=== PATIENT | male | born 1990 | race Caucasian/White ===

== ENCOUNTER 2024-09-09 12:43 | Emergency (ER) | payer OTHER, SELFPAY ==
--- NOTE | ~2024-09-09 | XR_ITS ---
EXAMINATION: XR chest 2V DATE: 09/09/2024 14:07 INDICATION: Cough and fever TECHNIQUE: PA and lateral views of the chest were obtained. COMPARISON: None FINDINGS: Patchy airspace opacities in the left lower lobe. Additional more subtle airspace opacities at the pe riphery of the right upper lung zone. No pulmonary edema, pleural effusion or pneumothorax. The cardi omediastinal silhouette is normal. Mild thoracic spondylosis. IMPRESSION: 1. Airspace opacity in the left lower lobe at the periphery of the right upper lung suspicious for pn eumonia. Recommend radiographic follow-up to resolution. Reviewed, dictated and finalized at location B. EMIC PHYSICIAN IMPRESSION: 1. Airspace opacity in the left lower lobe at the periphery of the right upper lung suspicious for pneumonia. Recommend radiographic follow-up to resolution.
[2024-09-09 13:46] VITALS: BP 136/75; PULSE 94; RESP 16; TEMP 38.4; O2SAT 98
--- NOTE | 2024-09-09 13:56 | ED.URI ---
HPI - URI/Sore Throat General Chief Complaint: Upper Respiratory Infection Stated Complaint: Fever/Rib Pain Time Seen by Provider: 09/09/24 13:56 Source: patient, RN notes reviewed and old records reviewed Mode of arrival: ambulatory Limitations: no limitations History of Present Illness HPI Narrative: 33 year old male presents to [facility] care with complaints of fever, cough, and sinus drainage, and now some rib pain since after Thanksgiving with symptoms increasing in intensity for the past few day. Patient reportsathat he has been taking Tylenol and Ibuprofen with the last dose at 1015 today. Patient reports some shortness of breath with activity, respirations nonlabored and SAO2@ 98% on room air with no tachypnea noted. denies any MD elicited complaint: fever, cough, rhinorrhea, nasal congestion and other (rib pain) Onset (ago): week(s) (3 to 4 weeks) Severity: moderate Description of mucous: clear and yellow Able to tolerate fluids by mouth: Yes Associated symptoms: fever, nasal congestion, cough and shortness of breath Treatments prior to arrival: acetaminophen and ibuprofen Related Data Allergies Allergy/AdvReac Type Severity Reaction Status Date / Time No Known Allergies Allergy Verified 09/09/24 16:08 Review of Systems Review of Systems: CONSTITUTIONAL: Reports malaise, chills, sweats, or fever. EYES: Denies visual changes, redness, or discharge. ENT: Reports rhinorrhea, congestion, sinus pain,no otalgia and no sore throat. CARDIOVASCULAR: Denies chest pain, palpitations, or edema. reports some rib pain bilaterally from coughing so much RESPIRATORY: Reports cough.? some dyspnea with exertion. GASTROINTESTINAL: Denies abdominal pain, nausea, vomiting, diarrhea SKIN: Denies rash or itching. MUSCULOSKELETAL: Denies myalgia. NEUROLOGIC: Denies headache. All systems reviewed & are unremarkable except as noted in HPI and below PMFSH Social History Social History (Updated 09/12/24 @ 20:53 by Cheri Powell NP) Smoking status: Never smoker Alcohol intake: unknown Substance use: unknown Living arrangements: with family Gender identity (if verbalized by the patient): Male Comments At time of signature, agree with nursing past medical, surgical, social and family history. There is no relevant family history pertinent to the presenting complaint Exam Narrative: GENERAL: Well-appearing, well-nourished, and in no acute distress. HEAD: Normocephalic EYES: PERRLA, conjunctivae clear ENT: Nares clear, turbinates edematous and erythematous, clear to yellow discharge. Mucous membranes moist. TM pearly joyce with dull light reflex bilaterally; no tragal tenderness. Oropharynx erythematous without lesions. Tonsils not enlarged and without exudate, no drooling, no hoarseness, no trismus, uvula midline. post nasal drainage NECK: Supple. No lymphadenopathy CHEST: Scattered rhonchi left lower lobe on auscultation, breath sounds equal. No wheezing,positive rhonchi, pili, or stridor. No respiratory distress, speaks in full sentences.SAO2 98% on room air some cough at times productive yellow tinged mucous no tachypnea HEART: Regular rate and rhythm. No murmur heard. SKIN: Warm, dry, no rash. NEURO: Alert and oriented x3. PSYCH: Normal mood and affect Course Course Emergency Course: Patient is aware of diagnosis, understands and agrees to treatment plan.? Anticipatory guidance given.? Patient agrees to follow-up as directed and is aware of reasons to seek care at the emergency department. Portions of this record may have been created with voice recognition software Level of Care: Express Care Visit Vital Signs Vital signs: Vital Signs Temperature 38.4 C H 09/09/24 13:46 Pulse Rate 94 09/09/24 13:46 Respiratory Rate 16 09/09/24 13:46 Blood Pressure 136/75 09/09/24 13:46 Pulse Oximetry 98 09/09/24 13:46 Temperature 38.4 C H 09/09/24 13:46 Pulse Rate 94 09/09/24 13:46 Respiratory Rate 16 09/09/24 13:46 Blood Pressure 136/75 09/09/24 13:46 Pulse Oximetry 98 09/09/24 13:46 Reviewed MDM - URI/Sore Throat MDM Narrative Medical decision making narrative: Differential diagnosis considered: Williamson virus, strep pharyngitis, allergic rhinitis, upper respiratory tract infection, sinusitis, rhinosinusitis, nasopharyngitis. viral pharyngitis, otitis media, otitis externa, pneumonia, bronchitis, viral cough syndrome, viral syndrome, and influenza.? Exam findings show no acute concerns or changes; patient is non-toxic appearing and is in no distress.? Patient is appropriate for outpatient treatment and follow-up. Differential Diagnosis Differential diagnosis: Likely upper respiratory infection, sinusitis, viral infection, bronchitis and other (pneumonia) Medical Records Attestation: I reviewed the patient's medical records. Lab Data Attestation: I reviewed the patient's lab results. Imaging Data Attestation: I personally reviewed and interpreted this imaging study as follows: My impression: left lower lobe pneumonia Radiologist's impression: [address] [place] [address] XRay Report Signed Patient: Matt Branham : 1990 MR#: [id number] Age: 33 Acct:[id number] Loc: [id number] ADM Date: 09/09/24Attending Dr: Ordering Physician: Cheri Powell APRN Date of Service: 09/09/24 Procedure(s): XR chest 2V Accession Number(s): [id number] cc: Cheri Powell APRN; UNKNOWN,DOCTOR~ EXAMINATION: XR chest 2V DATE: 09/09/2024 14:07 INDICATION: Cough and fever TECHNIQUE: PA and lateral views of the chest were obtained. COMPARISON: None FINDINGS: Patchy airspace opacities in the left lower lobe. Additional more subtle airspace opacities at the periphery of the right upper lung zone. No pulmonary edema, pleural effusion or pneumothorax. The cardiomediastinal silhouette is normal. Mild thoracic spondylosis. IMPRESSION: 1. Airspace opacity in the left lower lobe at the periphery of the right upper lung suspicious for pneumonia. Recommend radiographic follow-up to resolution. Reviewed, dictated and finalized at location B. GER Dictated By: Keyshawn Gongora MD 09/09/24 1408 Signed By: <Electronically signed by Keyshawn Gongora MD in OV> Critical Care Time Critical Care Time Critical Care Time: No Discharge Plan Discharge Clinical Impression: Pneumonia Qualifiers: Pneumonia type: due to unspecified organism Lung location: lower lobe of lung Patient Disposition: Home, Self-Care Condition: Stable Instructions: Antibiotic Form, Pneumonia (ED) Additional Instructions: Increase fluids especially juices and water [id number] cough and cold medicine of your choice for your symptoms Zyrtec Claritin or Lisa daily Tylenol or ibuprofen for any fever pain Continue your inhaler/nebulizer as directed Steroids as directed--take with food heat to the face 20-30 minutes 4-6 times a day for pain Salt water gargles, throat lozenges or throat sprays as desired Antibiotic as directed--finished the medication If your symptoms persist, change or worsen significantly before you can contact your personal physician then please, without delay, go to the emergency department for further evaluation. Follow-up with PCP in 7-10 days or sooner if needed Follow up with PCP soon in regards to your blood pressure which is elevated above threshold for referral. Blood pressure above 120/80 may indicate pre-hypertension. Patient Language: Yakut Prescriptions: New azithromycin 250 mg tablet See Rx Instructions .ROUTE .COMPLEX Qty: 6 0RF Rx Instructions: For 250 mg dose pack: take 500 mg today (day 1), then 250 mg for 4 days (days 2-5) prednisone 20 mg tablet 20 mg PO BID Qty: 10 0RF albuterol sulfate 90 mcg/actuation HFA aerosol inhaler 2 puff inhalation QID PRN (Reason: shortness of breath or wheezing) Qty: 8.5 0RF Follow-up/Referrals: UNKNOWN,DOCTOR [Primary Care Provider] - Time of Disposition: 15:43 Quality Gerardo Coma Scale Eyes: Open Verbal: Oriented and Alert Motor: Follows Commands Gerardo Coma Total Score: 15
== END 2024-09-09 15:47 | disposition home or self-care (01) ==
PROVIDERS: Emergency Provider Registered Nurse
DX: J18.9 Pneumonia, unspecified organism (principal)
CPT/HCPCS: 71046; 99203; G0463